=== PATIENT | male | born 1955 | race Caucasian/White ===

== ENCOUNTER 2017-11-26 20:56 | Emergency (ER) | payer OTHER ==
[~2017-11-26] VITALS: Ht 177.8 cm; Wt 89.8 kg
[~2017-11-26 20:56] MED LIST: Fludrocortison0.1 MG PO
== END 2017-11-26 22:09 | disposition home or self-care (01) ==
LOC: ER 20:56
DX: T18.128A Food in esophagus causing other injury, initial encounter (principal); Z79.899 Other long term (current) drug therapy
CPT/HCPCS: 93005; 93010; 99283-25

== ENCOUNTER 2018-04-11 00:58 | Day surgery (SDC) | payer OTHER ==
[~2018-04-11] VITALS: Ht 180.3 cm; Wt 85.0 kg
== END 2018-04-11 12:15 | disposition home or self-care (01) ==
LOC: MHTC 00:58
DX: R55 Syncope and collapse (principal); R07.9 Chest pain, unspecified; R94.39 Abnormal result of other cardiovascular function study
CPT/HCPCS: 93458; 93567; 99152; 99153; C1769; C1894; J0461; J1644; J2250; J3010; J7030; Q9967

== ENCOUNTER 2018-04-19 09:02 | Emergency (ER) | payer OTHER ==
[~2018-04-19] VITALS: Ht 177.8 cm; Wt 79.4 kg
[~2018-04-19 09:02] MED LIST changes: +METO25ER PO
[2018-04-19 09:43] LABS: BASOPHILS ABSOLUTE AUTO 0.04 K/mm3 (0.00-0.23); BASOPHILS PERCENT AUTO 0 % (0-2); EOSINOPHILS ABSOLUTE AUTO 0.27 K/mm3 (0.00-0.68); EOSINOPHILS PERCENT AUTO 3 % (0-6); Hematocrit 42.6 % (37.0-53.0); Hemoglobin 14.5 g/dL (13.5-17.5); IMMATURE GRAN ABSOLUTE AUTO 0.03 K/mm3 (0.00-0.10); IMMATURE GRAN PERCENT AUTO 0 % (0-1); LYMPHOCYTES ABSOLUTE AUTO 2.22 K/mm3 (0.84-5.20); LYMPHOCYTES PERCENT AUTO 22 % (21-46); MONOCYTES ABSOLUTE AUTO 0.71 K/mm3 (0.16-1.47); MONOCYTES PERCENT AUTO 7 % (4-13); Mean Corpuscular HGB 30.9 pg (26.0-34.0); Mean Corpuscular Volume 91 fL (80-100); Mean Platelet Volume 10.7 fL (9.1-12.4); NEUTROPHILS ABSOLUTE AUTO 6.64 K/mm3 (1.96-9.15); NEUTROPHILS PERCENT AUTO 67 % (41-73); Platelet Count 222 K/mm3 (150-400); RDW Coefficient Variation 13.4 % (11.7-14.2); RDW Standard Deviation 44.6 fL (35.1-46.3); Red Blood Cell Count 4.69 M/mm3 (4.30-5.90); White Blood Cell Count 9.91 K/mm3 (4.00-11.30)
[2018-04-19 09:54] LABS: Alanine Aminotransfer (ALT/SGP 28 U/L (12-78); Albumin, Blood 3.3 g/dL (3.4-5.0); Alk Phos 51 U/L (50-136); Anion Gap 8 mmol/L (6-16); Aspartate Aminotrans (AST/SGOT 26 U/L (12-37); Bilirubin, Total 0.6 mg/dL (0.1-1.0); Blood Urea Nitrogen 14 mg/dL (8-24); Bun/Creatinine Ratio 12.6 (12.0-20.0); CO2, Blood 25 mmol/L (21-32); Calcium, Blood 7.9 mg/dL (8.5-10.1); Chloride, Blood 111 mmol/L (98-108); Creatinine, Blood 1.11 mg/dL (0.60-1.20); Globulin, Blood 3.4 g/dL (2.2-4.0); Glomerular Filtration Rate >60 (60-); Glucose, Blood 118 mg/dL (70-99); Potassium, Blood 3.8 mmol/L (3.5-5.5); Sodium, Blood 144 mmol/L (136-145); Total Protein, Blood 6.7 g/dL (6.4-8.2)
[2018-04-19] MEDS ORDERED: AMOX250 PO (10:17)
[2018-04-19] MEDS ORDERED: Midodrine HCl10 MG PO (10:20)
== END 2018-04-19 10:35 | disposition home or self-care (01) ==
LOC: ER 09:02
PROVIDERS: Emergency Medicine
DX: I95.1 Orthostatic hypotension (principal); R55 Syncope and collapse; Z95.0 Presence of cardiac pacemaker; Z79.899 Other long term (current) drug therapy
CPT/HCPCS: 36415; 80053; 85025; 93005; 93010; 96360; 99284-25; J7030

== ENCOUNTER 2018-04-19 12:44 | Inpatient (IN) | payer OTHER ==
[~2018-04-19] VITALS: Ht 177.8 cm; Wt 86.0 kg
[~2018-04-19 12:44] MED LIST changes: +AMOX250 PO; +Midodrine HCl10 MG PO
[2018-04-21] MEDS ORDERED: PAIN & FEVER325 MG PO (14:09)
[2018-04-21] MEDS ORDERED: Midodrine HCl2.5 MG PO (14:10)
[2018-04-21] MEDS ORDERED: NAPR500 PO (14:11)
[2018-04-21] MEDS ORDERED: SODCHL1 PO (14:12)
[2018-04-21] MEDS ORDERED: NORT25 PO (14:12)
== END 2018-04-21 14:40 | disposition home or self-care (01) | DRG 74 ==
LOC: PCU 12:44
DX: G90.9 Disorder of the autonomic nervous system, unspecified (principal); I45.89 Other specified conduction disorders; I49.5 Sick sinus syndrome; Z95.0 Presence of cardiac pacemaker
CPT/HCPCS: J7030

== ENCOUNTER 2020-02-25 07:40 | Day surgery (SDC) | payer BC ==
[~2020-02-25] VITALS: Ht 177.8 cm; Wt 79.1 kg
[~2020-02-25 07:40] MED LIST changes: +Midodrine HCl2.5 MG PO; +NAPR500 PO; +NORT25 PO; +PAIN & FEVER325 MG PO; +SODCHL1 PO
--- NOTE | 2020-02-25 08:24 | NUR ---
Ambulatory in Day Surgery History, Chart, Medications and Allergies reviewed before start of procedure. Lungs clear T/O to Auscultation. Pre-Op teaching done. Pt verbalizes understanding.
--- NOTE | 2020-02-25 10:48 | NUR ---
Dressing to procedure site clean, dry, intact with no visible drainage, swelling, erythema or bruising noted. PROVIDED FOOD, FLUID AND PAIN PILL.
--- NOTE | 2020-02-25 11:21 | NUR ---
Patient up to Ambulate independently. Gait steady. Discharge instructions reviewed with patient. Patient verbalizes understanding. Copy given to patient to take home. Patient States Post-Procedure ride home has been arranged. Discharged via wheelchair to private car for ride home.ALL BELONINGS RETURNED TO PATIENT.
== END 2020-02-25 23:10 | disposition home or self-care (01) ==
LOC: ORSCMMR 07:40 → ORD 09:00 → ORSCMMR 23:10
PROVIDERS: Surgery
PROC: 0YU60JZ Supplement Left Inguinal Region with Synthetic Substitute, Open Approach (ICD-10-PCS; principal; 2020-02-25 09:00)
DX: K40.90 Unilateral inguinal hernia, without obstruction or gangrene, not specified as recurrent (principal); I48.91 Unspecified atrial fibrillation; Z95.0 Presence of cardiac pacemaker; Z79.899 Other long term (current) drug therapy
CPT/HCPCS: A9270-GY; C1781; J0690; J2250; J2405; J3010; J7120